=== PATIENT | female | born 1925 | race Caucasian/White ===

== ENCOUNTER 2016-08-11 11:56 | Outpatient (CLI) | payer MEDICARE, OTHER ==
[2014-07-15 10:33] VITALS: BP 115/45
== END 2016-08-11 11:57 ==
LOC: LAB 11:56
PROVIDERS: ATTEND Family Medicine
DX: R73.9 Hyperglycemia, unspecified (principal); S81.851D Open bite, right lower leg, subsequent encounter
CPT/HCPCS: 36415; 83036; 87070

== ENCOUNTER 2016-09-02 09:26 | Outpatient (CLI) | payer MEDICARE, OTHER ==
[2014-07-15 10:33] VITALS: BP 115/45
== END 2016-09-02 09:36 ==
LOC: POD 09:26
PROVIDERS: ATTEND Podiatrist Public Medicine
DX: B35.1 Tinea unguium (principal); L60.0 Ingrowing nail; M79.674 Pain in right toe(s); M79.675 Pain in left toe(s)
CPT/HCPCS: 11721; G0463

== ENCOUNTER 2016-10-20 10:26 | Outpatient (CLI) | payer MEDICARE, OTHER ==
[2014-07-15 10:33] VITALS: BP 115/45
== END 2016-10-20 10:27 ==
LOC: CARD 10:26
PROVIDERS: ATTEND Internal Medicine Cardiovascular Disease
DX: I35.0 Nonrheumatic aortic (valve) stenosis (principal)
CPT/HCPCS: G0463